=== PATIENT | female | born 1940 | race Caucasian/White ===

== ENCOUNTER → 2018-01-11 | Outpatient (CLI) | payer MEDICARE, OTHER | LOC: LAB 16:20 | PROVIDERS: ATTEND Internal Medicine Critical Care Medicine | DX: J98.4 Other disorders of lung (principal); J47.9 Bronchiectasis, uncomplicated; J06.9 Acute upper respiratory infection, unspecified; A31.9 Mycobacterial infection, unspecified; J32.9 Chronic sinusitis, unspecified; M41.9 Scoliosis, unspecified | CPT/HCPCS: 87070; 87205 ==

== ENCOUNTER 2018-01-14 16:36 | Inpatient (IN) | payer MEDICARE, OTHER ==
[2018-01-14 17:08] VITALS: BP 162/77
[2018-01-14] MEDS ORDERED: TRIAMCINOLONE A15 G1 IH (17:44)
[2018-01-14] MEDS ORDERED: ADVAIR 250-501 EACH IH (17:44)
[2018-01-14] MEDS ORDERED: CLARITHROMYCIN500 MG PO (17:44)
[2018-01-14] MEDS ORDERED: SIMBRINZA IO (17:44)
[2018-01-14] MEDS ORDERED: SPIRIVA18 MCG INH (17:44)
[2018-01-14] MEDS ORDERED: ETHAMBUTOL HCL400 MG PO (17:44)
[2018-01-14] MEDS ORDERED: IPRATROPIU0.2 MG/1 M NEB (17:44)
[2018-01-14] MEDS ORDERED: RIFAMPIN300 MG PO (17:44)
[2018-01-14] MEDS ORDERED: LUMIGAN2.5 M1 OP (17:44)
[2018-01-14] MEDS ORDERED: ACETAMINOPHEN 325 MG TAB PO PRN (18:45)
[2018-01-14] MEDS ORDERED: ALBUTEROL/IPRATROPIUM 3 ML NEB NEB SCH (19:00)
[2018-01-14 19:12] LABS: BASOPHILS % 0.6 % (0.0-1.0); EOSINOPHILS # (AUTO) 0.1 (0.0-0.4); EOSINOPHILS % 2.2 % (0.0-6.0); HEMATOCRIT 34.5 % (34.2-44.1); HEMOGLOBIN 11.6 g/dL (12.0-16.0); LYMPHOCYTES # (AUTO) 0.6 (1.0-3.2); LYMPHOCYTES % 11.2 % (18.0-39.1); MEAN CORPUSCULAR HEMOGLOBIN 32.7 pg (28-32); MEAN CORPUSCULAR HGB CONC 33.6 g/dL (31-35); MEAN CORPUSCULAR VOLUME 97.2 fL (81-99); MONOCYTES # (AUTO) 0.4 (0.2-0.8); MONOCYTES % 6.6 % (4.4-11.3); NEUTROPHILS # (AUTO) 4.3 (2.1-6.9); PLATELET COUNT 224 x10e3/uL (140-360); RED BLOOD COUNT 3.55 x10e6/uL (3.6-5.1)
[2018-01-14 19:37] LABS: ALANINE AMINOTRANSFERASE 124 IU/L (0-55); ALBUMIN 2.8 g/dL (3.5-5.0); ALBUMIN/GLOBULIN RATIO 0.8 (0.8-2.0); ALKALINE PHOSPHATASE 113 IU/L (40-150); ANION GAP 12.8 mmol/L (8-16); BLOOD UREA NITROGEN 17 mg/dL (7-26); BUN/CREATININE RATIO 24 (6-25); CALCIUM 8.6 mg/dL (8.4-10.2); CARBON DIOXIDE 23 mmol/L (22-29); CHLORIDE 106 mmol/L (98-107); CREATININE, SERUM 0.71 mg/dL (0.57-1.11); EST GLOMERULAR FILTRATION RATE > 60 ML/MIN (60-); GLUCOSE 134 mg/dL (74-118); MAGNESIUM 1.7 MG/DL (1.3-2.1); PHOSPHORUS 2.7 MG/DL (2.3-4.7); POTASSIUM 3.8 mmol/L (3.5-5.1); SODIUM 138 mmol/L (136-145)
[2018-01-14 19:55] LABS: ERYTHROCYTE SEDIMENTATION RATE 92 mm/hr (0-20)
[2018-01-14 20:00] VITALS: BP 139/65
[2018-01-14] MEDS: EYE OP SCH (21:00)
[2018-01-14] MEDS: SIMBRINZA OP SCH (21:00)
--- NOTE | 2018-01-14 21:31 | Diagnostic Imaging Report ---
EXAM: CT CHEST WO DATE: 01/14/2018 4:57 PM INDICATION: Possible pneumonia COMPARISON: None TECHNIQUE: Multidetector CT scanning of the chest was performed. Coronal and sagittal multiplanar reformations were obtained. IV Contrast: 0 ml Isovue 370/300 FINDINGS: Image quality mildly degraded by streak artifact from spinal hardware. LUNGS AND PLEURA: Emphysema with bronchial thickening and mucous plugging. Biapical pleural-parenchymal opacity, likely scarring. There are scattered irregular nodules/nodular opacities. The largest measure 11 x 12 mm subpleural in the right upper lobe on image 50, 8 mm in the right lower lobe on image 71, 13 mm subpleural in the left lower lobe on image 84, and 7 mm in the right middle lobe on image 59. HEART, MEDIASTINUM, VESSELS: Normal heart size. No pericardial effusion. No adenopathy. UPPER ABDOMEN: Unremarkable. MUSCULOSKELETAL: Partially imaged thoracolumbar spinal indu fixation. Dextrocurvature of the lower thoracic spine. IMPRESSION: 1. Emphysema with bronchial wall thickening, likely bronchitis. No consolidation. 2. Multiple indeterminate nodules and irregular nodular opacities. Recommend 3 month follow-up chest CT or PET/CT. Signed by: Dr Tammi Lugo MD on 01/14/2018 9:27 PM
[2018-01-14] MEDS ORDERED: ONDANSETRON HCL INJ 2 MG/ML VIAL IV PRN (22:45)
[2018-01-14] MEDS ORDERED: DEXTROSE IV SCH (22:45)
[2018-01-14] MEDS ORDERED: POTASSIUM CHLORIDE IV SCH (22:45)
[2018-01-14] MEDS ORDERED: SOD CHL IV SCH (22:45)
[2018-01-14] MEDS ORDERED: HYDRALAZINE HCL 20 MG/ML VIAL IV PRN (23:00)
[2018-01-14] MEDS ORDERED: DEXTROSE IV ONE (23:05)
[2018-01-14] MEDS ORDERED: SOD CHL IV ONE (23:05)
[2018-01-15] VITALS (8 sets, daily range): BP systolic 138–159; BP diastolic 68–102
--- NOTE | 2018-01-15 00:12 | History and Physical ---
DATE OF THIS ENCOUNTER: January 14, 2018 CHIEF COMPLAINT: Malaise, fevers, pneumonia. HISTORY: Ms. Courtney is a pleasant 77-year-old female well known to me for years from my clinic with malaise. Patient was having fevers over 101 degrees yesterday. Has malaise and muscle aches. Patient with sputum that is about close to baseline with yellow as she is known with chronic lung disease. 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 Regimen is ethambutol, clarithromycin, and rifampin. She is on 3 times a week regimen with clarithromycin 500 Thursday, Thursday, Thursday; Rocephin 600 Thursday, Thursday, Thursday; ethambutol 1200 Thursday, Thursday, and Thursday. 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 Patient actually came to my office on January 07, 2018 and then she came back on January 11, 2018 and now this is the third escalation of January 14, 2018. This time, she is sent to emergency room for evaluation and more aggressive care. PAST MEDICAL HISTORY: Bronchiectatic lung disease, glaucoma, hyperlipidemia, scoliosis, and spinal rods for stabilization. October 22, 2017 FEV1 was 1.31 liters or 74% predicted, FVC 2.59 liters or 109% predicted with decreased ratio. Total lung capacity 128%, RV 152%, DLCO 2.44 mmol or 55% predicted. MEDICATIONS: Medication list reviewed per electronic record. ALLERGIES: PENICILLIN AND AMOXICILLIN. SHE ALSO HAS DIFFICULTY TOLERATING CIPROFLOXACIN. FAMILY HISTORY: Cancer in her brother, and tuberculosis in uncle. SOCIAL HISTORY: She smoked from age 17 to 36, 1 pack per day. No alcohol, no drugs. She worked as an security police officer previously. Her had asbestos contact and developed COPD. She lives by herself in [address] home. REVIEW OF SYSTEMS: GENERAL: No weight changes. OPHTHALMOLOGIC: No double vision. ENT: No dry mouth. ENDOCRINE: No thyroid disease. PULMONARY: No asthma. IMMUNOLOGIC: No allergies. CARDIAC: No heart attacks. GI: No constipation. : No blood in urine. MUSCULOSKELETAL: There is some mild arthritis. PSYCHIATRIC: No depression. NEUROLOGIC: No seizures. OBJECTIVE: VITAL SIGNS: Afebrile, vital signs noted per electronic record. 162/77 blood pressure noted. 99.3 temperature. GENERAL: Looks weak with low energy. HEENT: Normocephalic, atraumatic. NECK: Supple. Throat midline. LUNGS: Bilateral air entry, slightly decreased breath sounds, mostly clear. No increased rales or rhonchi right now. CARDIOVASCULAR: S1, S2. No murmurs, rubs, or gallops. ABDOMEN: Soft, nontender. EXTREMITIES: No clubbing, no cyanosis, there is no edema. INTEGUMENT: No rash, no purpura. LABS: On January 12, 2018, sputum sample with gram-positive cocci in pairs and clusters, but rare WBCs. Patient has history of mycobacterial cultures that demonstrated rifampin sensitivity, INH sensitivity, and ethambutol resistance to in vitro. OTHER LABS: Include 5 white count. Creatinine is 0.7. AST 68, ALT is 124. Total protein 6.2, albumin 2.8, globulin normal 3.4. There is no baseline LFTs at [facility]. IMPRESSION AND PLAN: 1. Fevers, malaise, treat as sepsis. 2. Elevated liver function tests, under evaluation. 3. Treatment for Mycobacterium kansasii pneumonitis, started per outside infectious disease expert. 4. Multinodular lung disease, many of which have been stable for years. 5. Bronchiectatic lung disease. 6. Hyperlipidemia. 7. Scoliosis, status post rods stabilization. 8. Former smoker. 9. 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 For COPD, will continue bronchodilators nebulized while in the hospital. Additional CPT will be applied to enhance expectoration. Patient sputum culture is clear and she is recently on ciprofloxacin. Will give her a few doses of steroids, but we do not want to significantly immunosuppress her. Hold off on mycobacterial medications and assess if the symptoms improve. Therefore, afterwards we can stepwise increase medicines once again as she feels well while watching liver function tests. If treatment is difficult, we will consider stopping medicines in the future and given surveillance given that she does not have any widespread pneumonitis in her lungs, but rather the nodular forms. Alternatively, in the future when antibiotic is stopped, we can consider doing bronchoscopy for more specific cultures in the future. Give other supportive therapy at this time. Job#: [id number]
[2018-01-15] MEDS: D5.45%NS/KCL 20MEQ 1,000 ML IV SCH ×2 (00:15→18:38)
[2018-01-15] MEDS: LEVOFLOXACIN 500MG/D5W 100ML 100 ML IV SCH ×2 (00:15→23:45)
[2018-01-15 01:47] LABS: CLARITY,URINE CLEAR (CLEAR); COLOR,URINE YELLOW (YELLOW); LEUKOCYTE ESTERASE ,URINE NEGATIVE (NEGATIVE); NITRITE,URINE NEGATIVE (NEGATIVE); PROTEIN,URINE DIPSTICK NEGATIVE (NEGATIVE)
[2018-01-15 01:48] LABS: BACTERIA,URINE RARE /HPF; BILIRUBIN,URINE NEGATIVE (NEGATIVE); EPITHELIAL CELLS,URINE RARE /LPF; KETONES,URINE NEGATIVE (NEGATIVE); MUCUS,URINE FEW (RARE); RBC,URINE 0-5 /HPF (0-5); URINE UROBILINOGEN 0.2 mg/dL (0.2 - 1); WBC,URINE (MAN) 0-5 /HPF (0-5)
[2018-01-15] MEDS: ALBUTEROL/IPRATROPIUM 3 ML NEB NEB SCH ×3 (06:00→14:00)
[2018-01-15 06:01] LABS: BASOPHILS % 0.5 % (0.0-1.0); EOSINOPHILS # (AUTO) 0.2 (0.0-0.4); EOSINOPHILS % 4.5 % (0.0-6.0); HEMATOCRIT 33.5 % (34.2-44.1); HEMOGLOBIN 11.1 g/dL (12.0-16.0); LYMPHOCYTES # (AUTO) 0.5 (1.0-3.2); LYMPHOCYTES % 12.6 % (18.0-39.1); MEAN CORPUSCULAR HEMOGLOBIN 32.5 pg (28-32); MEAN CORPUSCULAR HGB CONC 33.1 g/dL (31-35); MONOCYTES # (AUTO) 0.3 (0.2-0.8); MONOCYTES % 7.7 % (4.4-11.3); NEUTROPHILS % 74.5 % (38.7-80.0); PLATELET COUNT 220 x10e3/uL (140-360); RED BLOOD COUNT 3.42 x10e6/uL (3.6-5.1); RED CELL DISTRIBUTION WIDTH 12.2 % (11.7-14.4)
[2018-01-15 06:29] LABS: ALANINE AMINOTRANSFERASE 115 IU/L (0-55); ALBUMIN 2.6 g/dL (3.5-5.0); ALBUMIN/GLOBULIN RATIO 0.8 (0.8-2.0); ALKALINE PHOSPHATASE 108 IU/L (40-150); ANION GAP 11.9 mmol/L (8-16); BLOOD UREA NITROGEN 12 mg/dL (7-26); BUN/CREATININE RATIO 18 (6-25); CALCIUM 8.6 mg/dL (8.4-10.2); CARBON DIOXIDE 23 mmol/L (22-29); CHLORIDE 105 mmol/L (98-107); CREATININE, SERUM 0.68 mg/dL (0.57-1.11); EST GLOMERULAR FILTRATION RATE > 60 ML/MIN (60-); GLUCOSE 151 mg/dL (74-118); LACTATE DEHYDROGENASE 177 IU/L (125-220); LIPASE 18 U/L (8-78); MAGNESIUM 1.7 MG/DL (1.3-2.1); POTASSIUM 3.9 mmol/L (3.5-5.1); SODIUM 136 mmol/L (136-145)
[2018-01-15 06:55] LABS: FOLATE 17.4 ng/mL (7.0-15.4)
[2018-01-15] MEDS: EYE OP SCH ×2 (09:00→17:00)
[2018-01-15] MEDS ORDERED: BIMATOPROST(OPTH) 2.5 ML BOTTLE OP SCH ×2 (09:00→21:00)
[2018-01-15] MEDS: SIMBRINZA OP SCH ×2 (09:00→17:00)
[2018-01-15] MEDS: MULTIVITAMINS/MINERALS TAB PO SCH (11:40)
[2018-01-15] MEDS ORDERED: MAGNESIUM HYDROXIDE 30 ML UDC PO PRN (12:00)
--- NOTE | 2018-01-15 12:38 | Progress Note ---
DATE: January 15, 2018 PULMONARY MEDICINE PROGRESS NOTE SUBJECTIVE: Ms. Courtney was seen and examined at bedside. She is feeling better slightly right now. Blood cultures were drawn and remain without any positive reports to this time. Patient ate very little today. Still coughing up some yellow phlegm. REVIEW OF SYSTEMS: No headaches, no bleeding. OBJECTIVE VITAL SIGNS: Afebrile. Vital signs noted per electronic record. GENERALLY: No acute distress, slightly low on energy still. HEENT: Normocephalic, atraumatic. NECK: Supple. Throat midline. LUNGS: Bilateral air entry, a few small rhonchi. CARDIOVASCULAR: S1 and S2. No murmurs, rubs or gallops. ABDOMINAL: Soft, nontender. EXTREMITIES: No clubbing, no cyanosis. There is no edema. INTEGUMENT: No rash. No purpura. LABS: White count 4, hematocrit 33. AST 59, ALT 115, alkaline phosphatase 108. IMPRESSION AND PLAN 1. Syndrome of malaise and fevers, treat for sepsis. 2. Bronchiectasis with possible small acute pneumonia. 3. Multiple lung nodules under chronic followup. 4. History of Mycobacterium kansasii pneumonitis. 5. Moderate protein calorie malnutrition. 6. Continue to optimize diet at this time. 7. Continue Levaquin IV antibiotics. Other supportive treatment will be continued. Patient will have consideration for step-huynh re-increase of her mycobacterial therapy, but we may consider aminoglycosides add-on in future to avoid any liver side effects in case we do not find anything but liver inflammatory disease at this time. Job#: [id number] EV
--- NOTE | 2018-01-15 13:18 | Diagnostic Imaging Report ---
EXAM: Right upper quadrant abdominal ultrasound INDICATION: Elevated LFTs COMPARISON: None. TECHNIQUE: Transverse and longitudinal images of the right upper quadrant abdomen were obtained FINDINGS: Liver: Size: 13.9 cm in the right midclavicular line, normal Appearance: Normal echogenicity, smooth contour Mass: No evidence of mass. Gallbladder: No distension, wall thickening, stone, or reported sonographic Bowen's sign. Gallbladder wall measures 0.2 cm. Bile Ducts: Intrahepatic Ducts: No dilatation Extrahepatic Ducts: Common bile duct measures 0.5 cm, no dilatation Pancreas: Visualized portions of the pancreatic head, neck and proximal body are normal. Kidney: The right kidney measures 9.2 cm without evidence of hydronephrosis or stone. Vessels: Aorta: Visualized portions are normal Inferior Vena Cava: Visualized portions are normal Main Portal Vein: 0.8 cm, normal size with hepatopetal flow. Free Fluid: No ascites. IMPRESSION: Unremarkable sonographic appearance of the liver and gallbladder. Signed by: Dr. Gail Garrett MD on 01/15/2018 1:15 PM
[2018-01-16] VITALS (8 sets, daily range): BP systolic 119–169; BP diastolic 60–79
[2018-01-16] MEDS: D5.45%NS/KCL 20MEQ 1,000 ML IV SCH ×2 (06:15→12:52)
[2018-01-16] MEDS: ALBUTEROL/IPRATROPIUM 3 ML NEB NEB SCH ×3 (08:09→15:35)
[2018-01-16] MEDS: SIMBRINZA OP SCH (09:00)
[2018-01-16] MEDS: EYE OP SCH (09:00)
[2018-01-16] MEDS: MULTIVITAMINS/MINERALS TAB PO SCH (09:20)
[2018-01-16] MEDS ORDERED: ONDANSETRON HCL 4 MG ORAL DISINTEGRATING TAB PO PRN (10:45)
[2018-01-16] MEDS ORDERED: MULTI-VITAMIN1 EACH PO (13:50)
[2018-01-16] MEDS ORDERED: ZOFRAN ODT4 MG PO (13:50)
--- NOTE | 2018-01-16 23:59 | Discharge Summary ---
PRIMARY DIAGNOSES 1. Pneumonia. 2. Bronchiectatic disease with exacerbation. DISCHARGE DIAGNOSES 1. Pneumonia. 2. Bronchiectatic disease with exacerbation. 3. Hepatitis. 4. Flu-like syndrome, suspect medicine reaction mostly form rifampin. 5. Mycobacterium kansasii pulmonary disease Mrs. Courtney was admitted from my clinic due to persistent symptoms despite outpatient close followup and failed interventions. She came to the hospital, noted with mildly increased LFTs with AST 68 and ALT 124. Vitamin B12 low at 953, folate 17.4. Otherwise, CBC and chemistry were mostly unremarkable. ESR 92. Urinalysis unremarkable. Cultures were sent and have been no growth to date for 2-1/2 days already. As the patient was feeling 90% of her baseline, we allowed her for discharge and close outpatient followup. She was on ciprofloxacin/Levaquin antibiotic throughout the outpatient workup and here in the hospital. I have talked to her to continue to hold some of the M. kansasii medications. Patient should continue clarithromycin 500 three times a week. In 2 weeks that she feels better, will start amikacin 500 mg twice weekly. Thereafter, consideration will be to either stop rifampin or continue it. At that time, we may choose to replace with isoniazid or possibly even Bactrim. We may forego ethambutol due to in vitro resistance that was noted. Once again, the goal for the Mycobacterium kansasii bronchiectatic pneumonitis will be about 16 months with at least 12 months of negative sputum cultures. Will follow up closely for side effects as outpatient. FOLLOWUP: Routine with Dr. Alba. My office will contact her regarding certain levels of followup post hospitalization. DIET: Regular as tolerated. MEDICATION ON DISCHARGE: See discharge medication administration record for details. ACTIVITY: As tolerated. OTHER RECOMMENDATION: Will repeat LFTs in a couple of weeks. Greater than 30 minutes spent in discharge planning, coordination. Job#: [id number] [facility]OUISShayla
== END 2018-01-16 17:02 | disposition home or self-care (01) | DRG 871 ==
LOC: MED/SURG3 16:36
PROVIDERS: ADMIT Internal Medicine Critical Care Medicine; ATTEND Internal Medicine Critical Care Medicine
DX: A41.9 Sepsis, unspecified organism (principal); J18.9 Pneumonia, unspecified organism; J47.1 Bronchiectasis with (acute) exacerbation; A31.0 Pulmonary mycobacterial infection; E44.0 Moderate protein-calorie malnutrition; Z68.1 Body mass index [BMI] 19.9 or less, adult; K75.9 Inflammatory liver disease, unspecified; J98.4 Other disorders of lung; M41.9 Scoliosis, unspecified; Z87.891 Personal history of nicotine dependence; E78.5 Hyperlipidemia, unspecified
CPT/HCPCS: 36415; 71250; 76705; 80053; 81001; 82607; 82746; 83615; 83690; 83735; 84100; 85025; 85651; 87040; 87086; J1956

== ENCOUNTER → 2018-03-29 | Outpatient (CLI) | payer MEDICARE, OTHER ==
[~2018-03-29] MED LIST: ADVAIR 250-501 EACH IH; CLARITHROMYCIN500 MG PO; ETHAMBUTOL HCL400 MG PO; IPRATROPIU0.2 MG/1 M NEB; LUMIGAN2.5 M1 OP; MULTI-VITAMIN1 EACH PO; RIFAMPIN300 MG PO; SIMBRINZA IO; SPIRIVA18 MCG INH; TRIAMCINOLONE A15 G1 IH; ZOFRAN ODT4 MG PO
--- NOTE | 2018-03-29 15:06 | Diagnostic Imaging Report ---
EXAMINATION: CT scan of the chest without contrast. TECHNIQUE: Helical CT images of the chest were performed from the lung apices to the level of the adrenal glands. No intravenous contrast was administered Coronal and sagittal reformatted images were obtained. COMPARISON: CT January 14, 2018 CLINICAL HISTORY:atypical mycobacterial infection DISCUSSION: ABSENCE OF INTRAVENOUS CONTRAST DECREASES SENSITIVITY FOR DETECTION OF FOCAL LESIONS AND VASCULAR PATHOLOGY. LINES/TUBES: None. LUNGS AND AIRWAYS: Apical pleural parenchymal scarring. Centrilobular emphysematous change. Multiple regions of scattered architectural distortion, subpleural nodularity and reticulation, and bronchiectasis. Overall, these findings are relatively stable from prior CT on January 14, 2018. The largest region of nodularity right lower lung measuring 1.2 cm image 50 The left lower lobe 1.2 cm nodular region likely reflecting atelectasis PLEURA: No pneumothorax or pleural effusions. HEART AND MEDIASTINUM: The thyroid gland is normal. The heart size is normal. The pericardium is unremarkable. LYMPH NODES: There is no mediastinal, hilar or axillary lymphadenopathy. ABDOMEN: Limited contrast-enhanced views of the upper abdomen show no abnormality within the visualized liver, spleen, pancreas, or kidneys. The adrenal glands are normal. BONES AND SOFT TISSUES: Streak artifact within the spine from orthopedic hardware. IMPRESSION: Stable pulmonary emphysema and scattered regions of subpleural nodular scarring/atelectasis. Signed by: Dr. Enoc Palomares M.D. on 03/29/2018 3:02 PM
== END ==
LOC: CT 13:17
PROVIDERS: ATTEND Internal Medicine Critical Care Medicine
DX: J06.9 Acute upper respiratory infection, unspecified (principal); A31.0 Pulmonary mycobacterial infection; J98.4 Other disorders of lung; J47.9 Bronchiectasis, uncomplicated; J32.9 Chronic sinusitis, unspecified; M41.9 Scoliosis, unspecified
CPT/HCPCS: 71250

== ENCOUNTER → 2019-01-26 | Outpatient (CLI) | payer MEDICARE, OTHER ==
--- NOTE | 2019-01-26 13:30 | Diagnostic Imaging Report ---
CT of the chest, without contrast. History: Upper respiratory infection. Comparison: CT chest without contrast from 03/29/2018, 01/14/2018. Technique: Multidetector CT scanning of the chest was performed from the level of the apices to the upper abdomen without contrast. Coronal and sagittal multiplanar reformations were obtained. RADIATION DOSE: Total DLP: 203.27 mGy*cm Dose modulation, iterative reconstruction, and/or weight based adjustment of the mA/kV was utilized to reduce the radiation dose to as low as reasonably achievable. FINDINGS: The thyroid and remaining visualized structures within the base of the neck demonstrate no significant abnormalities. The thoracic aorta is normal course and caliber with mild atherosclerotic calcifications. The heart is not enlarged. No abnormal pericardial fluid is present. There is no abnormal axillary, mediastinal, or hilar lymph node enlargement. The trachea and proximal airways are patent. There are stable mild centrilobular emphysematous changes. There is stable appearing biapical scarring. Additionally, there is stable appearing architectural distortion subpleural nodularity, reticulation, and bronchiectasis predominantly within the right middle lobe and lingula. The index area of nodularity within the subpleural right upper lobe measures 1.2 cm (image 43), previously 1.2 cm. An additional nodular opacity within the right lower lobe measures 7 mm (axial image 66), previously 8 mm. The index area of nodularity within the left lower lobe appears more bandlike and suggestive of atelectasis/scarring. There is no evidence for consolidation, pneumothorax, new mass/suspicious nodule, or pleural effusion. Limited views of the upper abdomen demonstrate no significant abnormalities. Partially visualized thoracolumbar spinal fixation device noted. There is no evidence for acute fracture or destructive process. The extrathoracic soft tissues are unremarkable. IMPRESSION: Stable appearing chronic changes of the lungs including mild emphysema, bronchiectasis, and subpleural nodularity which are unchanged from prior examinations dated back to 01/14/2018. Signed by: Dr. Bill Costello MD on 01/26/2019 1:27 PM
== END ==
LOC: CT 11:13
PROVIDERS: ATTEND Internal Medicine Critical Care Medicine
DX: J47.9 Bronchiectasis, uncomplicated (principal); J98.4 Other disorders of lung; A31.0 Pulmonary mycobacterial infection; J06.9 Acute upper respiratory infection, unspecified; A31.9 Mycobacterial infection, unspecified; J32.9 Chronic sinusitis, unspecified; M41.9 Scoliosis, unspecified
CPT/HCPCS: 71250